=== PATIENT | male | born 1965 | race Caucasian/White ===

== ENCOUNTER 2018-11-25 17:35 | Emergency (ER) | payer BC ==
[~2018-11-25] VITALS: Ht 172.7 cm; Wt 92.5 kg
[2018-11-25 17:46] VITALS: Ht 172.7 cm; Wt 92.5 kg
[2018-11-25 19:35] VITALS: BP 131/85
== END 2018-11-25 19:35 | disposition home or self-care (01) ==
LOC: ED 17:35
DX: S93.401A Sprain of unspecified ligament of right ankle, initial encounter (principal); Z87.442 Personal history of urinary calculi; W11.XXXA Fall on and from ladder, initial encounter; Y93.89 Activity, other specified; Y92.89 Other specified places as the place of occurrence of the external cause; Y99.8 Other external cause status